=== PATIENT | male | born 1990 | race Caucasian/White ===

== ENCOUNTER 2016-03-08 15:44 | Emergency (ER) | payer OTHER ==
[2016-03-08 16:04] VITALS: BP 127/82
--- NOTE | 2016-03-08 16:39 | UC ---
Lower Extremity/Ankle HPI - HPI Summary HPI Summary: patient rolled foot when her got up from sitting pain ludivina the distal end of the metarsals of the right foot - History of Current Complaint Chief Complaint: UCLowerExtremity Stated Complaint: RIGHT FOOT Time Seen by Provider: 03/08/16 16:18 Hx Obtained From: Patient Onset/Duration: Sudden Onset, Lasting Hours Severity Initially: Mild Severity Currently: Moderate Pain Intensity: 4 Pain Scale Used: 0-10 Numeric Aggravating Factor(s): Standing, Ambulation Alleviating Factor(s): Nothing Able to Bear Weight: Yes - Allergies/Home Medications Allergies/Adverse Reactions: Allergies Allergy/AdvReac Type Severity Reaction Status Date / Time Codeine Allergy Palpitation Verified 03/08/16 15:59 s PMH/Surg Hx/FS Hx/Imm Hx Previously Healthy: Yes Endocrine History Of: Denies: Diabetes, Thyroid Disease Cardiovascular History Of: Denies: Cardiac Disorders, Hypertension Respiratory History Of: Denies: Asthma - Surgical History Surgical History: Yes Surgery Procedure, Year, and Place: T&A ~1995, Ear Tubes - Family History Known Family History: Negative: Hypertension - Social History Alcohol Use: Occasionally Substance Use Type: None Smoking Status (MU): Light Every Day Tobacco Smoker Type: Cigarettes Amount Used/How Often: 1/4 PPD Length of Time of Smoking/Using Tobacco: 8 Years Household Exposure Type: Cigarettes - Immunization History Most Recent Influenza Vaccination: Not the Season Review of Systems Constitutional: Negative Skin: Negative Eyes: Negative ENT: Negative Respiratory: Negative Cardiovascular: Negative Gastrointestinal: Negative Genitourinary: Negative Motor: Negative Neurovascular: Negative Musculoskeletal: Arthralgia, Decreased ROM, Myalgia Neurological: Negative Psychological: Negative All Other Systems Reviewed And Are Negative: Yes Physical Exam Triage Information Reviewed: Yes Appearance: Well-Appearing, Well-Nourished, Pain Distress Vital Signs: Initial Vital Signs Temp 98.8 F 03/08/16 15:58 Pulse 96 03/08/16 15:58 Resp 16 03/08/16 15:58 BP 127/82 03/08/16 15:58 Pulse Ox 98 03/08/16 15:58 Vital Signs Reviewed: Yes Eye Exam: Normal Eyes: Positive: Conjunctiva Clear ENT Exam: Normal ENT: Positive: Normal ENT inspection, Pharynx normal, TMs normal Dental Exam: Normal Neck exam: Normal Neck: Positive: Supple, Nontender, No Lymphadenopathy Respiratory Exam: Normal Respiratory: Positive: Chest non-tender, Lungs clear, Normal breath sounds Cardiovascular Exam: Normal Cardiovascular: Positive: RRR, No Murmur, Pulses Normal Abdominal Exam: Normal Abdomen Description: Positive: Nontender, No Organomegaly, Soft Bowel Sounds: Positive: Present Musculoskeletal: Positive: Strength Limited @, ROM Limited @, Edema @ - mild swelling over the top of right for foot Neurological Exam: Normal Neurological: Positive: Alert, Muscle Tone Normal Psychological Exam: Normal Skin Exam: Normal Lower Extremity Course/Dx - Course Course Of Treatment: hx obtained, exam performed, xray negative. educated on treatment of sprain. - Differential Dx/Diagnosis Differential Diagnosis/HQI/PQRI: Contusion, Dislocation, Fracture (Closed), Sprain, Strain Provider Diagnoses: forefoot sprain Discharge - Discharge Plan Condition: Stable Disposition: HOME Patient Education Materials: Foot Sprain (ED) Referrals: PEDRO Oh [Primary Care Provider] -
--- NOTE | 2016-03-08 16:54 | RAD ---
INDICATION: Right foot injury COMPARISON: August 26, 2008 TECHNIQUE: AP and lateral views were obtained. FINDINGS: The bony structures, joint spaces, and soft tissues are normal for age. IMPRESSION: NO ACUTE FRACTURE.
== END 2016-03-08 16:51 | disposition home or self-care (01) ==
LOC: UCCORT 15:44
DX: S93.601A Unspecified sprain of right foot, initial encounter (principal); X50.1XXA Overexertion from prolonged static or awkward postures, initial encounter; Y93.9 Activity, unspecified; Y92.9 Unspecified place or not applicable; Z88.5 Allergy status to narcotic agent; F17.210 Nicotine dependence, cigarettes, uncomplicated
CPT/HCPCS: 99211; G0463

== ENCOUNTER 2017-05-16 07:26 | Emergency (ER) | payer OTHER ==
--- OUTSIDE RECORDS SUMMARY | 2017-05-16 07:41 | XMS REPORT ---
:1990 External Reference #:[id number] Author Organization [facility] Address [address], [address] [place] [address] Phone [phone] Care Team Providers Name Role Phone Yaritza Cassidy PA Primary Care Physician Unavailable Payers Type Date Identification Numbers Payment Provider Subscriber Commercial Policy Number: [id number] [facility] Jesse Hancock PayID: [id number] [address] [place] [address] Medicaid Policy Number: [id number] Medicaid Jesse Hancock PayID: [id number] [address] [place] [address] Problems Date Description Provider Status Onset: 01/26/2017 Pain in testicle Shiela Forrest M.D. Active Family History Date Family Member(s) Problem(s) Comments Grandfather Diabetes Grandfather Hypertension Social History Type Date Description Comments Lives With Lives With Children Occupation Laid off Cigarette Use currently smokes 1/2 Pack Daily Cigarette Use Pack Years - 08 ETOH Use Occasionally consumes alcohol Smoking Patient is a current smoker, 1/2 a pack a day smokes every day Recreational Drug Use Denies Drug Use Daily Caffeine Current Caffeine User 2 cups of coffee a day Allergies, Adverse Reactions, Alerts Date Description Reaction Status Severity Comments 12/27/2013 Codeine active Medications Medication Date Status Form Strength Qnty SIG Indications Ordering Provider No Active 02/04/20 Active Unknown Medications 17 No Active 01/27/20 Hx Unknown Medications 17 - 01/27/20 17 Naproxen Hx Tablets 500mg 1 po bid Unknown - 01/27/20 17 Doxycycline Hx Tablets 100mg 1 tab by Unknown Hyclate 00 - mouth 02/04/20 twice a 17 day for 10 days Medications Administered in Office Medication Date Status Form Strength Qnty SIG Indications Ordering Provider Depomedrol 80 Administered Injection Melinda S. mg 014 [place] Veras Vital Signs Date Vital Result Comment 05/13/2017 BP Systolic 124 mmHg BP Diastolic 86 mmHg Body Temperature 98.8 F Heart Rate 82 /min Respiratory Rate 16 /min Height 70 inches 5'10" Weight 267.00 lb BMI (Body Mass Index) 38.3 kg/m2 BSA (Body Surface Area) 2.36 m2 [place] body weight in kilograms 75 O2 % BldC Oximetry 97 % Pain Level 0 05/13/2017 Height 70 inches 5'10" [place] body weight in kilograms 75 02/03/2017 BP Systolic 141 mmHg BP Diastolic 95 mmHg Body Temperature 97.7 F 36.5C Heart Rate 97 /min Respiratory Rate 20 /min Height 70 inches 5'10" Weight 259.12 lb BMI (Body Mass Index) 37.2 kg/m2 BSA (Body Surface Area) 2.33 m2 [place] body weight in kilograms 75 O2 % BldC Oximetry 97 % Pain Level 1 Incision area 01/26/2017 BP Systolic 132 mmHg BP Diastolic 83 mmHg Body Temperature 99.2 F Heart Rate 96 /min Respiratory Rate 17 /min Height 70 inches 5'10" Weight 258.12 lb BMI (Body Mass Index) 37.0 kg/m2 BSA (Body Surface Area) 2.33 m2 [place] body weight in kilograms 75 O2 % BldC Oximetry 99 % Pain Level 6 Left testicle and low back pain 12/27/2013 BP Systolic Sitting Right Arm 128 mmHg BP Diastolic Sitting Right Arm 88 mmHg Height 70 inches 5'10" Weight 254.00 lb BMI (Body Mass Index) 36.4 kg/m2 BSA (Body Surface Area) 2.31 m2 Results Test Date Test Result H/L Range Note Laboratory test finding 01/26/2017 L[facility] 213 U/L 87-241 1 Afp Tumor Marker,Serum < 0.7 ng/mL 0.0-8.3 1, 2 HCG,Beta Subunit,QN,(Serial) <1 mIU/mL 0-3 1, 3 1 N50.812 2 Normal values apply only to males and to non females. These results are not interpretable for females. Shon ECLIA methodology. Values obtained with different assay methods or kits cannot be used interchangeably. Results cannot be interpreted as absolute evidence of the presence or absence of malignant disease. 3 Shon ECLIA methodology Performed at: RN - [facility] [address] [id number] Sheet Rock Installer: Carol Currie MD, Phone: [phone] Procedures Date CPT Code Description Status 01/28/2017 19345 Orchiectomy Simple Completed 12/27/2013 07190 Asp./Injection major joint Completed Encounters Type Date Location Provider CPT E/M Dx Office Visit 01/26/2017 2:15p Urology Shiela Forrest M.D. 43110 N50.812 Office Visit 01/24/2014 9:45a Orthopaedic Office Melinda Veras, [phone] [facility] Plan of Care 05/13/2017 - Shiela Forrest M.D.N50.812 Left testicular painComments:Resolved post orchiectomy. I discussed placing a prosthesis with the patient but he is not interested at this time. Patient to follow-up with me as needed.
[2017-05-16 07:59] VITALS: BP 119/67
--- NOTE | 2017-05-16 08:20 | UC ---
Respiratory Complaint HPI - HPI Summary HPI Summary: COUGH X 3 DAYS CHEST CONGESTION , RUNNY NOSE, MILD SORE THROAT, NO FEVER, + CHILLS - History of Current Complaint Chief Complaint: UCRespiratory Stated Complaint: CONGESTION, COUGH Time Seen by Provider: 05/16/17 07:54 Hx Obtained From: Patient Onset/Duration: Gradual Onset, Lasting Days - 3, Still Present Timing: Constant Severity Initially: Moderate Severity Currently: Moderate Pain Intensity: 0 Character: Cough: Nonproductive Aggravating Factors: Deep Breaths Alleviating Factors: Nothing Associated Signs And Symptoms: Positive: URI, Nasal Congestion. Negative: Fever , Chills, Hoarseness, Sinus Discomfort - Allergies/Home Medications Allergies/Adverse Reactions: Allergies Allergy/AdvReac Type Severity Reaction Status Date / Time codeine Allergy Unknown palpations Verified 05/16/17 07:53 PMH/Surg Hx/FS Hx/Imm Hx Previously Healthy: Yes - Surgical History Surgical History: Yes Surgery Procedure, Year, and Place: T&A ~1995, Ear Tubes. LEFT TESTICLE REMOVED - BENIGN, JAN 2017 - Family History Known Family History: Negative: Hypertension - Social History Alcohol Use: Occasionally Substance Use Type: None Smoking Status (MU): Light Every Day Tobacco Smoker Type: Cigarettes Amount Used/How Often: 1/4 PPD Length of Time of Smoking/Using Tobacco: 8 Years Household Exposure Type: Cigarettes - Immunization History Most Recent Influenza Vaccination: Not the Season Review of Systems Constitutional: Negative Skin: Negative Eyes: Negative ENT: Sore Throat, Nasal Discharge Respiratory: Cough Cardiovascular: Negative Gastrointestinal: Negative Genitourinary: Negative Is Patient Immunocompromised?: No All Other Systems Reviewed And Are Negative: Yes Physical Exam Triage Information Reviewed: Yes Appearance: Well-Appearing, No Pain Distress, Well-Nourished Vital Signs: Initial Vital Signs Temp 98.3 F 05/16/17 07:53 Pulse 81 05/16/17 07:53 Resp 18 05/16/17 07:53 BP 119/67 05/16/17 07:53 Pulse Ox 98 05/16/17 07:53 Vital Signs Reviewed: Yes Eyes: Positive: Conjunctiva Clear ENT: Positive: Normal ENT inspection, Hearing grossly normal, Pharynx normal, Nasal congestion, Nasal drainage, TMs normal Neck exam: Normal Neck: Positive: Supple, Nontender, No Lymphadenopathy Respiratory: Positive: Chest non-tender, Lungs clear, Normal breath sounds Cardiovascular: Positive: RRR, No Murmur, Pulses Normal Skin Exam: Normal UC Diagnostic Evaluation - Laboratory O2 Sat by Pulse Oximetry: 98 Respiratory Course/Dx - Differential Dx/Diagnosis Provider Diagnoses: URI Discharge - Sign-Out/Discharge Documenting (check all that apply): Discharge - Discharge Plan Condition: Stable Disposition: HOME Patient Education Materials: Upper Respiratory Infection (ED) Forms: *Work Release Referrals: PEDRO Oh [Primary Care Provider] - If Needed - Billing Disposition and Condition Condition: STABLE Disposition: HOME
== END 2017-05-16 08:26 | disposition home or self-care (01) ==
LOC: UCCORT 07:26
DX: J06.9 Acute upper respiratory infection, unspecified (principal); F17.210 Nicotine dependence, cigarettes, uncomplicated; Z88.5 Allergy status to narcotic agent
CPT/HCPCS: 99211; G0463

== ENCOUNTER 2018-07-25 14:23 | Emergency (ER) | payer BC, OTHER ==
[2018-07-25 15:15] VITALS: BP 135/84
--- NOTE | 2018-07-25 15:19 | UC ---
Complaint Male HPI - HPI Summary HPI Summary: Patient presents to urgent care for evaluation of sexually transmitted infection. Patient states he and his for strange approximately one month ago. Patient states his tested positive for chlamydia approximately 2 weeks ago. Patient complete a course of treatment. Patient states that they has not had intercourse since this time. Patient here requesting be tested himself. Patient does not have any symptoms. No penile pain, no dysuria, no hematuria. Patient has any lesions. No penile pain or testicular pain. No back pain no abdominal pain. Patient states he has remote history Trichomonas been no recent STD. Patient without any other complaints. Patient's medications reviewed this visit. - History of Current Complaint Chief Complaint: UCGU Stated Complaint: PERSONAL Time Seen by Provider: 07/25/18 15:17 Hx Obtained From: Patient Pain Intensity: 0 - Allergies/Home Medications Allergies/Adverse Reactions: Allergies Allergy/AdvReac Type Severity Reaction Status Date / Time codeine Allergy Unknown palpations Verified 07/25/18 15:11 PMH/Surg Hx/FS Hx/Imm Hx Previously Healthy: Yes - Surgical History Surgical History: Yes Surgery Procedure, Year, and Place: T&A ~1995, Ear Tubes. LEFT TESTICLE REMOVED - BENIGN, JAN 2017 - Family History Known Family History: Positive: Non-Contributory Negative: Hypertension - Social History Occupation: Employed Part-time Lives: With Family Alcohol Use: Occasionally Substance Use Type: None Smoking Status (MU): Light Every Day Tobacco Smoker Type: Cigarettes Amount Used/How Often: 1/4 PPD Length of Time of Smoking/Using Tobacco: 8 Years Household Exposure Type: Cigarettes - Immunization History Most Recent Influenza Vaccination: Not the 2015/2016 Season Review of Systems All Other Systems Reviewed And Are Negative: Yes Constitutional: Positive: Negative Skin: Positive: Negative Genitourinary: Positive: Negative Is Patient Immunocompromised?: No Physical Exam - Summary Physical Exam Summary: Vital Signs Reviewed: Yes A+Ox3, no distress Eyes: Conjunctiva Clear, ENT: Hearing grossly normal Neck: Positive: Supple Respiratory: Positive: No respiratory distress, No accessory muscle use + CTA throughout no w/r Cardiovascular: RRR nl s1, s2 no m/r CBT <2 sec abd soft + BS nt/nd no guarding, no distension, no CVA Musculoskeletal Exam: GARZON x 4 without difficulty Strength Intact Neurological: Positive: Alert, + sensation throughout Psychological: Positive: Normal Response To Family Skin: Positive: no rash, no ecchymosis Triage Information Reviewed: Yes Vital Signs: Initial Vital Signs Temp 97.2 F 07/25/18 15:12 Pulse 102 07/25/18 15:12 Resp 16 07/25/18 15:12 BP 135/84 07/25/18 15:12 Pulse Ox 99 07/25/18 15:12 Complaint Male Course/Dx - Course Course Of Treatment: Patient presents to urgent care requesting testing for sexual transmitted infection. Patient's was tested positive for chlamydia approximately 2 weeks ago and has completed course of treatment. Patient denies any symptoms like to be checked. Patient with a remote history of Trichomonas. Patient without any complaints. Vital signs are stable. We'll check gonorrhea/ chlamydia/Trichomonas. Patient with this may take up to 10 days to return. Patient advised to use a condom understanding from sex until such time as test results are back. Patient advised to return precautions. Understanding agreement with plan. - Differential Dx/Diagnosis Provider Diagnosis: Exposure to chlamydia Discharge - Sign-Out/Discharge Documenting (check all that apply): Patient Departure All imaging exams completed and their final reports reviewed: No Studies - Discharge Plan Condition: Stable Disposition: HOME Patient Education Materials: Sexually Transmitted Diseases (ED) Referrals: Rozian Cassidy PA [Primary Care Provider] - Additional Instructions: Your urine has been sent for sexually transmitted infections today (chlamydia, gonorrhea, and trichomonas) these results taken several days to come back. If you need treatment, you will receive a call from a care steam conditioner operator. You are not being treated today because you do not have any symptoms. It is recommended you use a condom at all times until you results are back and you have completed any necessary course of treatment. - Billing Disposition and Condition Condition: STABLE Disposition: Home
[2018-07-26 13:18] LABS: Neisseria gonorrhoeae (GC) RNA Negative (Negative)
[2018-07-27 20:54] LABS: Trichomonas vaginalis SOURCE: Urine (Male Patient)
== END 2018-07-25 16:18 | disposition home or self-care (01) ==
LOC: UCCORT 14:23
DX: Z20.2 Contact with and (suspected) exposure to infections with a predominantly sexual mode of transmission (principal); F17.210 Nicotine dependence, cigarettes, uncomplicated
CPT/HCPCS: 87491; 87591; 87661; 99211; G0463